=== PATIENT | male | born 1965 | race Caucasian/White ===

== ENCOUNTER 2017-11-12 13:01 | Emergency (ER) | payer MEDICAID ==
[2017-11-12] MEDS ORDERED: Sodium Chloride 0.9% 1,000 ML IV STA (13:15)
--- NOTE | 2017-11-12 13:35 | ED PDOC ---
HPI: Abdomen Time Seen by Provider: 11/12/17 13:09 Chief Complaint (Nursing): Abdominal Pain Chief Complaint (Provider): Abdominal Pain History Per: Patient History/Exam Limitations: no limitations Onset/Duration Of Symptoms: Days (x2) Current Symptoms Are (Timing): Still Present Associated Symptoms: Nausea, Vomiting. denies: Fever, Diarrhea Additional Complaint(s): 52 year old male presents to the ED complaining of diffuse abdominal pain associated with nausea and vomiting since last night after eating [place] food. Denies fever and diarrhea. PMD: Malachi Cloud Past Medical History Reviewed: Historical Data, Nursing Documentation, Vital Signs Vital Signs: Last Vital Signs Temp 98.4 F 11/12/17 18:09 Pulse 56 L 11/12/17 18:09 Resp 18 11/12/17 18:09 BP 134/63 11/12/17 18:09 Pulse Ox 100 11/12/17 18:09 - Medical History PMH: Asthma - Surgical History Surgical History: No Surg Hx - Family History Family History: States: Unknown Family Hx - Home Medications Home Medications: Ambulatory Orders Medication Instructions Recorded Dextromethorphan Hydrobromid 15 mg PO TID PRN #50 ml 01/24/15 [Dextromethorphan HBr Adult Formula] Azithromycin [Zithromax Z-Tarik] 250 mg PO DAILY #1 packet 02/26/15 Prednisone 20 mg PO BID #10 tab 02/26/15 guaiFENesin/Codeine [Robitussin 5 ml PO Q4H PRN #240 ml 02/26/15 w/Codeine] Dicyclomine [Bentyl] 20 mg PO QID PRN #20 tab 11/12/17 Ondansetron ODT [Zofran ODT] 1 odt PO Q6 PRN #20 odt 11/12/17 - Allergies Allergies/Adverse Reactions: Allergies Allergy/AdvReac Type Severity Reaction Status Date / Time No Known Allergies Allergy Verified 11/12/17 13:03 Review of Systems ROS Statement: Except As Marked, All Systems Reviewed And Found Negative Constitutional: Negative for: Fever Gastrointestinal: Positive for: Nausea, Vomiting, Abdominal Pain. Negative for : Diarrhea Physical Exam - Reviewed Nursing Documentation Reviewed: Yes Vital Signs Reviewed: Yes - Physical Exam Appears: Positive for: Non-toxic, No Acute Distress Head Exam: Positive for: ATRAUMATIC, NORMOCEPHALIC Skin: Positive for: Normal Color, Warm, Dry Eye Exam: Positive for: Normal appearance Neck: Positive for: Normal, Painless ROM Cardiovascular/Chest: Positive for: Regular Rate, Rhythm. Negative for: Murmur Respiratory: Positive for: Normal Breath Sounds. Negative for: Wheezing, Respiratory Distress Gastrointestinal/Abdominal: Positive for: Soft, Tenderness (in all 4 quadrants) . Negative for: Guarding, Rebound Extremity: Positive for: Normal ROM Neurologic/Psych: Positive for: Alert, Oriented. Negative for: Motor/Sensory Deficits - Laboratory Results Result Diagrams: 11/12/17 13:57 11/12/17 13:57 - ECG O2 Sat by Pulse Oximetry: 100 (RA) Pulse Ox Interpretation: Normal Medical Decision Making Medical Decision Making: Initial Impression: Abdominal pain Initial Plan: --CMP --CBC --Pepcid --Sodium chloride 1000mL IV --Zofran 4mg IV Scribe Attestation: Documented by Dariusz Hernandes acting as a scribe for Ad Gorman MD. Provider Scribe Attestation: All medical record entries made by the Scribe were at my direction and personally dictated by me. I have reviewed the chart and agree that the record accurately reflects my personal performance of the history, physical exam, medical decision making, and the department course for this patient. I have also personally directed, reviewed, and agree with the discharge instructions and disposition. Disposition - Clinical Impression Clinical Impression: Abdominal pain - Patient ED Disposition Is Patient to be Admitted: Transfer of Care - Disposition Referrals: [facility] [Outside] - 11/14/17 Disposition: Transfer of Care Disposition Time: 15:00 Condition: FAIR Prescriptions: Dicyclomine [Bentyl] 20 mg PO QID PRN #20 tab PRN Reason: abdominal pain Ondansetron ODT [Zofran ODT] 1 odt PO Q6 PRN #20 odt PRN Reason: Nausea/Vomiting Instructions: Acute Abdomen (Belly Pain) Patient Signed Over To: Jessica Ellsworth
[2017-11-12 14:03] LABS: BASO # 0.2 K/uL (0.0-0.2); EOS # 0.2 K/uL (0.0-0.7); EOS % 1.4 % (0.0-4.0); HEMOGLOBIN 14.6 g/dL (12.0-18.0); LYMPH # 2.9 K/uL (1.0-4.3); LYMPH % 19.8 % (20.0-40.0); MEAN CELL VOLUME 100.1 fl (80.0-94.0); MEAN CORPUSCULAR HGB CONC 33.9 g/dL (33.0-37.0); MEAN PLATELET VOLUME 7.5 fl (7.2-11.7); MONO # 1.1 K/uL (0.0-0.8); MONO % 7.4 % (0.0-10.0); NEUT # 10.4 K/uL (1.8-7.0); NEUT % 70.4 % (50.0-75.0); RBC 4.3 Mil/uL (4.40-5.90); RED CELL DISTRIBUTION WIDTH 15.1 % (11.5-14.5); WHITE BLOOD COUNT 14.8 K/uL (4.8-10.8)
[2017-11-12 14:18] LABS: ALB/GLOB RATIO 1.5 (1.0-2.1); ALBUMIN 4.3 g/dL (3.5-5.0); ALT/SGPT 36 U/L (21-72); AST/SGOT 27 U/L (17-59); BLOOD UREA NITROGEN 18 mg/dl (9-20); CALCIUM 9.7 mg/dL (8.4-10.2); GFR NON-AFRICAN AMERICAN > 60
[2017-11-12] MEDS ORDERED: Iohexol 300 100 ML IJ ONE (14:54)
[2017-11-12] MEDS ORDERED: Sodium Chloride 0.9% 50 ML IV ONE (14:55)
--- NOTE | 2017-11-12 15:13 | ED PDOC ---
- Laboratory Results Result Diagrams: 11/12/17 13:57 11/12/17 13:57 - ECG O2 Sat by Pulse Oximetry: 100 (RA) Pulse Ox Interpretation: Normal Medical Decision Making Medical Decision Making: Time: 1499 -- Patient endorsed to me by Dr. Gorman, pending CT and final ER disposition. Time: 1630 CT RESULTS FINDINGS: LOWER THORAX: Heart size within range of normal. There is a small -medium-sized hiatal hernia. Lung bases clear. No infiltrate effusion or basilar pneumothorax. Tiny pneumatocele left medial lung base. LIVER: Liver is enlarged measuring over 20 cm in CC dimension. Mild fatty hepatic infiltration. GALLBLADDER AND BILE DUCTS: Unremarkable. PANCREAS: Unremarkable. No mass. No ductal dilatation. SPLEEN: Unremarkable. No splenomegaly. ADRENALS: There are no adrenal lesions. KIDNEYS AND URETERS: Kidneys demonstrate symmetric nephrograms. No evidence of nephrolithiasis or hydronephrosis BLADDER: Grossly unremarkable. REPRODUCTIVE: Prostate gland measures approximately 4.1 cm in transverse dimension. Prostatic calcifications are present. APPENDIX: Normal appendix BOWEL: The stomach is incompletely distended. Visualized loops of small bowel exhibit normal contour and caliber. No evidence of acute mechanical bowel small bowel obstruction. There does appear to be some fecalized content within proximal loops of small bowel. There is a large amount of stool seen within the distal transverse colon, descending and sigmoid colon as well as rectum consistent with fecal retention/ constipation. PERITONEUM: Unremarkable. No fluid collection. No free air. LYMPH NODES: Unremarkable. No enlarged lymph nodes. VASCULATURE: Unremarkable. No aortic aneurysm. BONES: Mild multilevel degenerative spondylosis lower thoracic and lumbar spine, most notably affecting the L4-L5 level. OTHER FINDINGS: None. IMPRESSION: Mild cardiomegaly with fatty hepatic infiltration. Large amount of stool within the distal transverse descending sigmoid colon rectum consistent with fecal retention/constipation bordering on fecal impaction. Clinical correlation recommended. Small to medium size hiatal hernia. Time: 1652 -- On re-evaluation, patient reports to have continued abdominal pain. Patient had a large bowel movement in the ER and felt slightly better. Patient denies nausea. Provider will give GI cocktail and re-assess. Time: 1703 -- Discussed with Dr. Cota, family practice resident for further information on patient's HIV status. Last CD4 count in September was 540 and viraloid was less than 20. DW pt findings. Pt feels better. Stable for DC. Scribe Attestation: Documented by Alban Roberts acting as a scribe for Dr. Jessica Ellsworth. Provider Scribe Attestation: All medical record entries made by the Scribe were at my direction and personally dictated by me. I have reviewed the chart and agree that the record accurately reflects my personal performance of the history, physical exam, medical decision making, and the department course for this patient. I have also personally directed, reviewed, and agree with the discharge instructions and disposition. Disposition - Clinical Impression Clinical Impression: Abdominal pain - POA Present On Arrival: None - Disposition Referrals: [facility] [Outside] - 11/14/17 Disposition: Routine/Home Disposition Time: 17:00 Condition: IMPROVED Prescriptions: Dicyclomine [Bentyl] 20 mg PO QID PRN #20 tab PRN Reason: abdominal pain Ondansetron ODT [Zofran ODT] 1 odt PO Q6 PRN #20 odt PRN Reason: Nausea/Vomiting Instructions: Acute Abdomen (Belly Pain)
[2017-11-12 16:25] VITALS: RESP 18; TEMP 98.4
--- NOTE | 2017-11-12 16:32 | CT ---
Date of service: 11/12/2017 PROCEDURE: CT Abdomen and Pelvis with Oral contrast. HISTORY: Abd pain COMPARISON: None. TECHNIQUE: Contiguous axial images of the abdomen and pelvis. . Coronal and Sagittal reformats generated. 95 cc Omnipaque 300 contrast material injected Radiation dose: Total exam DLP = 345.52 mGy-cm. This CT exam was performed using one or more of the following dose reduction techniques: Automated exposure control, adjustment of the mA and/or kV according to patient size, and/or use of iterative reconstruction technique. FINDINGS: LOWER THORAX: Heart size within range of normal. There is a small -medium-sized hiatal hernia. Lung bases clear. No infiltrate effusion or basilar pneumothorax. Tiny pneumatocele left medial lung base. LIVER: Liver is enlarged measuring over 20 cm in CC dimension. Mild fatty hepatic infiltration. GALLBLADDER AND BILE DUCTS: Unremarkable. PANCREAS: Unremarkable. No mass. No ductal dilatation. SPLEEN: Unremarkable. No splenomegaly. ADRENALS: There are no adrenal lesions. KIDNEYS AND URETERS: Kidneys demonstrate symmetric nephrograms. No evidence of nephrolithiasis or hydronephrosis BLADDER: Grossly unremarkable. REPRODUCTIVE: Prostate gland measures approximately 4.1 cm in transverse dimension. Prostatic calcifications are present. APPENDIX: Normal appendix BOWEL: The stomach is incompletely distended. Visualized loops of small bowel exhibit normal contour and caliber. No evidence of acute mechanical bowel small bowel obstruction. There does appear to be some fecalized content within proximal loops of small bowel. There is a large amount of stool seen within the distal transverse colon, descending and sigmoid colon as well as rectum consistent with fecal retention/constipation. PERITONEUM: Unremarkable. No fluid collection. No free air. LYMPH NODES: Unremarkable. No enlarged lymph nodes. VASCULATURE: Unremarkable. No aortic aneurysm. BONES: Mild multilevel degenerative spondylosis lower thoracic and lumbar spine, most notably affecting the L4-L5 level. OTHER FINDINGS: None. IMPRESSION: Mild cardiomegaly with fatty hepatic infiltration. Large amount of stool within the distal transverse descending sigmoid colon rectum consistent with fecal retention/constipation bordering on fecal impaction. Clinical correlation recommended. Small to medium size hiatal hernia.
[2017-11-12 16:40] VITALS: O2SAT 100
[2017-11-12] MEDS ORDERED: Alum-Mag Hydrox-Simethicone Susp (30 mL) PO STA (16:44)
[2017-11-12 18:21] VITALS: BP 134/63; PULSE 56
== END 2017-11-12 18:09 | disposition home or self-care (01) ==
LOC: H.ER 13:01
DX: R10.9 Unspecified abdominal pain (principal); J45.909 Unspecified asthma, uncomplicated
CPT/HCPCS: 74177; 80053; 85025; 96361; 96374; 96375; 99284; J1885; J2405; J7030; Q9967